=== PATIENT | male | born 1980 | race Caucasian/White ===

== ENCOUNTER 2017-06-03 10:49 | Emergency (ER) | payer BC, MEDICAID ==
[2017-06-03 11:00] VITALS: BP 132/80
--- NOTE | 2017-06-03 11:27 | ED Physician Documentation ---
History of Present Illness - Stated complaint Stated Complaint: RED BUMP - Chief complaint Chief Complaint: Wound - Additonal information Additional information: hx from pt L abd abscess draining spont no fever no hx MRSA Review of Systems Constitutional: denies: Fever Skin: reports: Lesions Immunocompromised: denies: Immunocompromised PD PAST MEDICAL HISTORY - Past Medical History Past Medical History: No - Present Medications Home Medications: Ambulatory Orders Medication Instructions Recorded Confirmed Cephalexin [Keflex] 500 mg PO Q6H #28 capsule 06/03/17 Mupirocin Calcium [Bactroban] 1 applic TP TID #15 cream..g. 06/03/17 Sulfamethox/Trimeth 800/160 1 each PO BID #14 tablet 06/03/17 [Bactrim Ds 800/160] - Allergies Allergies/Adverse Reactions: Allergies Allergy/AdvReac Type Severity Reaction Status Date / Time No Known Drug Allergies Allergy Verified 06/03/17 11:00 - Social History Does the pt smoke?: Yes Smoking Status: Current every day smoker PD ED PE NORMAL - Vitals Vital signs reviewed: Yes - Cardiac Cardiac: RRR - Respiratory Respiratory: No respiratory distress, Clear bilaterally - Extremities Extremities: Other (approx 3 X 4 cm cellulitis with central swelling already open and no furher fltunace and drainage) Results - Vitals Vitals: Vital Signs - 24 hr 06/03/17 10:58 Temperature 36.6 C Heart Rate 105 H Respiratory 18 Rate Blood Pressure 132/80 H O2 Saturation 98 Oxygen O2 Source Room air PD MEDICAL DECISION MAKING - ED course ED course: spont drained already, almost an ulceration at this point, no eschar, does not need I&D now Departure - Departure Disposition: 01 Home, Self Care Condition: Good Instructions: ED Staph Infec Abx Tx Only Prescriptions: Sulfamethox/Trimeth 800/160 [Bactrim Ds 800/160] 1 each PO BID #14 tablet Mupirocin Calcium [Bactroban] 1 applic TP TID #15 cream..g. Cephalexin [Keflex] 500 mg PO Q6H #28 capsule Comments: Continue showers or warm compresses to encourage drainage Always wash your hands after touching the wound Keep wound covered so it does not spread Return if worse Please follow up with your PMD to get your blood pressure rechecked when you are feeling better it was high today
== END 2017-06-03 11:41 | disposition home or self-care (01) ==
LOC: ED 10:49
DX: L02.211 Cutaneous abscess of abdominal wall (principal); L98.9 Disorder of the skin and subcutaneous tissue, unspecified
CPT/HCPCS: 87070; 87077; 87205; 99283

== ENCOUNTER 2020-11-09 01:48 | Emergency (ER) | payer MEDICAID ==
[2020-11-09 01:56] VITALS: BP 117/80
[2020-11-09] MEDS ORDERED: PROPARACAINE 0.5% OPHTH DROPS 15 ML LEFTEYE STA (02:19)
[2020-11-09] MEDS ORDERED: ERYTHROMYCIN OPHTH OINT 1 GM TUBE LEFTEYE STA (02:38)
--- NOTE | 2020-11-09 02:43 | ED Physician Documentation ---
PD HPI OPHTHO - Stated complaint Stated Complaint: LT EYE INJURY - Chief complaint Chief Complaint: Heent - History obtained from History obtained from: Patient - History of Present Illness Timing - onset: How many days ago (2) Timing - duration: Days (2) Timing - details: Abrupt onset (struck left eye with branch 2 days ago with some irritation. Now with increased redness lateral aspect and some drainage, but not purulent per se.), Still present Location: Left Quality / character: Aching Associated symptoms: Redness, Tearing, FB sensation. No: Swelling, Matting Contributing factors: Blunt trauma Similar symptoms before: Has not had sx before Recently seen: Not recently seen Review of Systems Constitutional: denies: Fever, Chills Eyes: reports: Decreased vision (some blurring), Irritation. 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 11/09/20 Ophthalmic Ointment] - Allergies Allergies/Adverse Reactions: Allergies Allergy/AdvReac Type Severity Reaction Status Date / Time No Known Drug Allergies Allergy Verified 11/09/20 01:55 - Social History Does the pt smoke?: Yes Smoking Status: Current every day smoker Does the pt drink ETOH?: Yes Does the pt have substance abuse?: Yes Substance Use and Type: Meth - Immunizations Immunizations are current?: Yes Immunizations: TDAP current <10years - POLST Patient has POLST: No PD ED PE NORMAL - Vitals Vital signs reviewed: Yes - General General: Alert and oriented X 3, Well developed/nourished - HEENT HEENT: PERRL, EOMI PD ED PE EXPANDED - Eyes Eyes: Injected conj/sclera (lateral part of the eye, with prominent blood vessels. No hemorrhage. ), Fluorescein uptake (superficial uptake dye lateral aspect around the area of hyperemia. ) Results - Vitals Vitals: Vital Signs - 24 hr 11/09/20 01:52 Temperature 36.0 C L Heart Rate 98 Respiratory 15 Rate Blood Pressure 117/80 O2 Saturation 97 Oxygen O2 Source Room air PD MEDICAL DECISION MAKING - ED course Complexity details: considered differential, d/w patient Departure - Departure Disposition: 01 Home, Self Care Clinical Impression: Corneal abrasion Qualifiers: Encounter type: initial encounter Laterality: left Qualified Code(s): S05.02XA - Injury of conjunctiva and corneal abrasion without foreign body, left eye, initial encounter Conjunctivitis, acute Qualifiers: Acute conjunctivitis type: unspecified Laterality: left Qualified Code(s): H10.32 - Unspecified acute conjunctivitis, left eye Condition: Stable Record reviewed to determine appropriate education?: Yes Instructions: ED Eye Injury Corneal Abrasion Prescriptions: Erythromycin Base [Erythromycin Ophthalmic Ointment] 1 applic OP QID #3.5 oint...g. Comments: There is a surface abrasion on the left eye. This usually would heal up well in a day or two. Since it is taking longer to eheasl, the concern would be for early infection. Use the Erythromycin ointment 4 times daily for the next few days. Tylenol or Ibuprofen as needed for pains. I would anticipate improvement and resolution over 2-3 days. Recheck if not all better in that timeframe. Return sooner if worse. Discharge Date/Time: 11/09/20 02:50
--- OUTSIDE RECORDS SUMMARY | 2020-11-15 00:56 | EXTERNAL MEDICAL SUMMARY RPT | Continuity of Care Document ---
:1980 Demographics Phone Unavailable Preferred Language Unknown Marital Status Unknown Roman Catholic Affiliation Unknown Race Unknown Ethnic Group Unknown Author Organization [place] Address [address] [phone] Phone Care Team Providers Name Role Phone Werve Unavailable Unavailable Problems date description facility 2015-05-09 16:15 LUMBAGO [facility] 2015-07-19 09:57 ANXIETY STATE NOS [facility] 2017-06-03 10:49 CUTANEOUS ABSCESS OF ABDOMINAL [facility] WALL 2017-06-03 10:49 DISORDER OF THE SKIN AND [facility] SUBCUTANEOUS TISSUE, UNSPECIFIED Allergies date description facility HYDROMORPHONE HCL [facility] MORPHINE [facility] NO KNOWN ENVIRONMENTAL ALLERGIES [facility] NSAIDS (NON-STEROIDAL ANTI-INFLAMMATORY DRUG) [facility] PENICILLINS [facility] [place] GRASS POLLEN-TANIA GRASS STANDARD [facility] NO KNOWN ALLERGIES [facility] [place] SHELLFISH CONTAINING PRODUCTS [facility] M[facility]PHINE [facility] DIPHENHYDRAMINE [facility] TRAMADOL [facility] [place] LISINOPRIL [facility] NIFEDIPINE [facility] JUNIPER [facility] HYDROCODONE-ACETAMINOPHEN [facility] No Known Drug Allergies [facility] No Known Drug Allergies [facility] Social History date description facility [phone]
== END 2020-11-09 02:50 | disposition home or self-care (01) ==
LOC: ED 01:48
DX: S05.02XA Injury of conjunctiva and corneal abrasion without foreign body, left eye, initial encounter (principal); W22.8XXA Striking against or struck by other objects, initial encounter; H10.32 Unspecified acute conjunctivitis, left eye; F17.200 Nicotine dependence, unspecified, uncomplicated
CPT/HCPCS: 99282; 99283; J3490

== ENCOUNTER 2021-06-24 20:32 | Emergency (ER) | payer MEDICAID ==
[2021-06-24 20:41] VITALS: BP 137/68
[2021-06-24] MEDS ORDERED: KETOROLAC 30 MG/ML VIAL IM STA (21:00)
[2021-06-24] MEDS ORDERED: HYDROcod/ACET 5/325 Prepack 4 PO STA (21:00)
--- NOTE | 2021-06-24 21:03 | ED Physician Documentation ---
PD HPI BACK PAIN - Stated complaint Stated Complaint: BACK PX - Chief complaint Chief Complaint: Back Pain - History obtained from History obtained from: Patient - Additional information Additional information: 41-year-old gentleman with longstanding neck and back pain much worse yesterday after shoveling gravel. He took someone else's hydrocodone which was helpful this morning. Pain is in the low back and neck. Nonradiating. No saddle anesthesia, tingling, numbness, incontinence, fevers. He has been having problems with his back for a long time, had trouble finding primary care for this although it is then on his to do list for the better part of last year. Review of Systems Constitutional: reports: Reviewed and negative Eyes: reports: Reviewed and negative Ears: reports: Reviewed and negative Nose: reports: Reviewed and negative Throat: reports: Reviewed and negative PD PAST MEDICAL HISTORY - Past Medical History GI: Other - Past Surgical History Past Surgical History: Yes General: Other - Present Medications Home Medications: Ambulatory Orders Medication Instructions Recorded Confirmed HYDROcod/ACETAM 5/325 [[place] 5/325] 1 - 2 tab PO Q6H PRN #10 tablet 06/24/21 Ibuprofen [Motrin] 800 mg PO Q8H PRN #20 tablet 06/24/21 - Allergies Allergies/Adverse Reactions: Allergies Allergy/AdvReac Type Severity Reaction Status Date / Time No Known Drug Allergies Allergy Verified 06/24/21 20:40 - Social History Does the pt smoke?: Yes Smoking Status: Current every day smoker Does the pt drink ETOH?: Yes Does the pt have substance abuse?: Yes - Immunizations Immunizations are current?: Yes Immunizations: TDAP current <10years - POLST Patient has POLST: No PD ED PE NORMAL - Vitals Vital signs reviewed: Yes - General General: Alert and oriented X 3, Other (Comfortable at rest but winces with motion) - Neck Neck: Supple, no meningeal sign, No bony TTP - Back Back: No CVA TTP, No spinal TTP - Extremities Extremities: Other (The patient has equal and normal Achilles and patellar reflexes bilaterally. Normal sensation in all areas of the legs. Patient denies saddle anesthesia. Normal strength in flexion-extension at the ankles, knees, and flexion of the hips.) - Neuro Neuro: Alert and oriented X 3, Normal speech Results - Vitals Vitals: Vital Signs - 24 hr 06/24/21 20:38 Temperature 36.8 C Heart Rate 85 Respiratory 16 Rate Blood Pressure 137/68 H O2 Saturation 99 Oxygen O2 Source Room air PD MEDICAL DECISION MAKING - ED course ED course: This patient has seemingly uncomplicated musculoskeletal back pain. The patient has no "red flags." Specifically denies IV drug use, fevers, incontinence, saddle anesthesia. Spinal epidural abscess was considered, given that the patient has no fever, is not diabetic, has no spinal tenderness, does not use IV drugs, and has no bilateral neurologic symptoms, the diagnosis of spinal epidural abscess is considered exceedingly unlikely. Patient specifically requesting MRI or x-rays. I discussed with him that there is little utility to x-rays and MRIs not available this time of night and really needed to follow-up with primary care for that and get preauthorization. Departure - Departure Disposition: 01 Home, Self Care Clinical Impression: Back pain Qualifiers: Back pain location: low back pain Chronicity: acute Back pain laterality: midline Sciatica presence: without sciatica Qualified Code(s): M54.5 - Low back pain Condition: Good Record reviewed to determine appropriate education?: Yes Instructions: ED Low Back Pain Injury Prescriptions: Ibuprofen [Motrin] 800 mg PO Q8H PRN #20 tablet PRN Reason: PAIN &/OR FEVER HYDROcod/ACETAM 5/325 [[place] 5/325] 1 - 2 tab PO Q6H PRN #10 tablet PRN Reason: Pain Comments: As discussed, it is imperative to find a primary care physician for further evaluation and treatment. Return for new or worsening symptoms. I am prescribing a short course of narcotic pain medication for you. These are potentially dangerous and addictive medications that should be used carefully. These medications may constipate you. Take an [id number] stool softener (docusate) twice daily with plenty of water while taking these medications. If you go 24 hours without a bowel movement, take [id number] miralax, per package instructions. Do not drink or drive while taking these medications. If you received narcotic or sedating medications while in the emergency department, do not drive for 24 hours. Store this medication in a safe, secure place and out of reach of children. It is a violation of federal law to give or sell this medication to another person or to use in a manner other than prescribed. The ED will not refill narcotic prescriptions, including prescriptions lost or stolen. To dispose of unwanted medications: 1. [facility] at [address] in [place] has a medication drop box. They accept prescription medications (in pill form) Friday through Friday 9:00 a.m. to 5:00 p.m. 2. The [facility] [employer] accepts prescription medications (in pill form only) for disposal year round. Call for more information. 3. Contact the [facility] for the next [facility] sponsored prescription drug collection event. , [phone], or [phone]; Note that many narcotic pain relievers also contain Tylenol/acetaminophen. Please ensure that your total dose of acetaminophen from all sources does not exceed 3 g (3000 mg) per day.
== END 2021-06-24 21:18 | disposition home or self-care (01) ==
LOC: ED 20:32
DX: M54.5 Low back pain (principal); F17.200 Nicotine dependence, unspecified, uncomplicated
CPT/HCPCS: 99282; 99283